=== PATIENT | female | born 1990 | race Caucasian/White ===

== ENCOUNTER 2020-11-21 14:39 | Emergency (ER) | payer SELFPAY ==
[~2020-11-21] VITALS: Ht 170.2 cm; Wt 64.0 kg
[~2020-11-21 14:39] MED LIST: DOCU-131 PO; IBUP-1222 PO; OMEG500C PO; OXYC1TAB14 PO; PNV1TABL4 PO; PREN1TAB60 PO
[2020-11-21 14:53] VITALS: BP 109/89
[2020-11-21] MEDS ORDERED: LORazepam 1MG TABLET PO ONE (15:00)
[2020-11-21] MEDS ORDERED: PLEASE ENTER HEIGHT AND WEIGHT MC SCH (15:00)
[2020-11-21] MEDS ORDERED: LORazepam 1MG TABLET ONE (15:18)
[2020-11-21 15:22] LABS: BASOPHILS % (AUTO) 1 % (0-1); EOSINOPHILS % (AUTO) 1 % (1-7); LYMPHOCYTES % (AUTO) 36 % (22-44); MEAN CORPUSCULAR HEMOGLOBIN 29.3 pg (27.0-34.8); MEAN CORPUSCULAR HGB CONC 34.2 g/dL (32.4-35.8); MEAN PLATELET VOLUME 7.6 fL (7.4-10.4); MONOCYTES % (AUTO) 5 % (2-9); NEUTROPHILS % (AUTO) 57 % (42-75); PLATELET COUNT 259 x10^3/uL (130-400); RED BLOOD COUNT 4.88 x10^6/uL (3.82-5.3); RED CELL DISTRIBUTION WIDTH 13.5 % (9.6-15.2)
[2020-11-21 15:23] LABS: MD NO
[2020-11-21 15:26] LABS: ALANINE AMINOTRANSFERASE 21 U/L (12-78); ANION GAP 8 mmol/L (5-15); CALCIUM 8.5 mg/dL (8.5-10.1); CHLORIDE 107 mmol/L (98-107); CREATININE 0.82 mg/dL (0.55-1.02)
[2020-11-21 15:37] LABS: ALKALINE PHOSPHATASE 61 U/L (45-117); BILIRUBIN,TOTAL 0.3 mg/dL (0.2-1.0); TOTAL PROTEIN 7.6 g/dL (6.4-8.2); TROPONIN I < 0.015 ng/mL (0.000-0.045)
--- NOTE | 2020-11-21 16:53 | NUR ---
Patient/Caregiver given discharge instructions and they have confirmed that they understand the instructions. Patient ambulatory with steady gait.
== END 2020-11-21 16:54 | disposition home or self-care (01) ==
LOC: ED 16:30
DX: F41.1 Generalized anxiety disorder (principal); R06.4 Hyperventilation; R10.10 Upper abdominal pain, unspecified; R42 Dizziness and giddiness; R06.02 Shortness of breath; I51.7 Cardiomegaly; R10.84 Generalized abdominal pain
CPT/HCPCS: 36415; 71045; 80053; 83690; 83735; 84443; 84484; 85025; 85379; 93005; 99285